=== PATIENT | male | born 1945 | race Caucasian/White ===

== ENCOUNTER 2019-04-23 17:47 | Inpatient (IN) | payer MEDICARE, OTHER ==
[~2019-04-23] VITALS: Ht 177.8 cm; Wt 108.1 kg
[~2019-04-23 17:47] MED LIST: CARB25TA3 PO; CHOL100040 PO; CLON0.1T PO; CLOP75TA28 PO; DOCU-94 PO; DULO30CA PO; ESOM40CA39 OR; FLAX1300 PO; HYDR25TA4 PO; LEVO25TA49 PO; LIOT1POW PO; MEMA5TAB2 PO; MULTTAB PO; ONDA-144 PO; TRAM50TA2 PO
[2019-04-23 18:30] LABS: Basophils # (auto) 0 uL; Basophils % (auto) 0.3 % (0.0-2.0); Eosinophils # (auto) 0 uL; Eosinophils % (auto) 0.1 % (0.0-7.0); Hemoglobin 17.3 g/dL (13.5-17.5); Lymphocytes # (auto) 1.7 uL; Lymphocytes % (auto) 10.6 % (10.0-50.0); Mean Corpuscular Hemoglobin 29.9 pg (28.0-32.0); Mean Corpuscular Hgb Conc. 32.7 g/dL (32.0-36.0); Mean Corpuscular Volume 91.5 fL (80.0-100.0); Monocytes # (auto) 0.5 uL; Monocytes % (auto) 3.4 % (0.0-12.0); Neutrophils # (auto) 13.8 uL; Neutrophils % (auto) 85.6 % (37.0-80.0); Nucleated Red Blood Cells % 0.2 %; Platelet Count (auto) 291 10^3/uL (140-450); Red Blood Cells 5.79 10^6/uL (4.5-5.90); Red Cell Distribution Width 14.2 % (11.8-14.3); White Blood Cell 16.1 10^3/uL (4.4-10.8)
[2019-04-23 18:43] LABS: Albumin 3.5 g/dL (3.4-5.0); Anion Gap 9 (5-15); Blood Urea Nitrogen 27 mg/dL (7-18); Calcium 9.3 mg/dL (8.5-10.1); Carbon Dioxide 24 mmol/L (21-32); Chloride 107 mmol/L (98-107); GFR African American 59 mL/min; GFR Non-African American 48 mL/min; Glucose 130 mg/dL (74-106); Potassium 4.6 mmol/L (3.5-5.1); Sodium 140 mmol/L (136-145)
[2019-04-23 18:48] LABS: Alanine Aminotransferase 21 U/L (16-61); Alkaline Phosphatase 78 U/L (45-117); Aspartate Aminotransferase 23 U/L (15-37); Bilirubin, Total 0.6 mg/dL (0.2-1.0); Total Protein 7.8 g/dL (6.4-8.2)
[2019-04-23] MEDS ORDERED: FUROSEMIDE 20 MG/2 ML VIAL IV ONE (19:15)
[2019-04-23 21:36] LABS: Lactic Acid w/Reflex 3.5 mmol/L (0.4-2.0)
[2019-04-23] MEDS ORDERED: VANCOMYCIN PER PHARMACY 1,000 MG IV SCH (22:00)
[2019-04-23] MEDS ORDERED: SODIUM CHLORIDE 0.9% 1,000 ML IV ONE (22:00)
[2019-04-23] MEDS ORDERED: VANCOMYCIN 1GM/250ML 250 ML IV ONE (22:45)
[2019-04-23] MEDS ORDERED: LORazepam 2MG/ML-1ML VIAL IV ONE (23:15)
[2019-04-24] VITALS (7 sets, daily range): BP systolic 96–114; BP diastolic 51–70
[2019-04-24] MEDS ORDERED: PIPERACILLIN-TAZOB 3.375GM 100 ML IV SCH
[2019-04-24] MEDS ORDERED: SODIUM CHLORIDE 0.9% 1,000 ML IV ONE (01:00)
[2019-04-24] MEDS ORDERED: ACETAMINOPHEN 325 MG TAB PO PRN (01:45)
[2019-04-24] MEDS ORDERED: ONDANSETRON HCL 4 MG/2 ML VIAL IV PRN (01:45)
--- NOTE | 2019-04-24 03:45 | NUR ---
Telemetry admit from ER TELMA GUTIERREZ admitted to Telemetry unit after SBAR received. Patient asleep at this time, arousable to pain. Sitter at bedside for safety. Patient oriented to SEBASTIEN JOHNSON, primary RN, unit, room, bed, and unit policies regarding patient care . Patient now on continuous telemetry monitoring, tele box #9 and telemetry reading on arrival to unit is SR 76. Reinsoo and rectal tube in tact. Patient placed on bedside oxygen, weighed by bedscale and encouraged to call if they need something. All questions and concerns addressed, patient verbalized understanding. Bed locked in lowest position, side rails upx2, call light within reach.
[2019-04-24] MEDS: metroNIDAZOLE 500MG/100ML 100 ML IV SCH ×3 (05:48→22:45)
[2019-04-24] MEDS ORDERED: ACE325T PO (06:20)
[2019-04-24] MEDS ORDERED: CLOP75TA41 PO (06:20)
[2019-04-24] MEDS ORDERED: CARB25TA22 PO (06:20)
[2019-04-24] MEDS ORDERED: NIFE60TA59 PO (06:20)
[2019-04-24] MEDS ORDERED: LEVO25TA6 PO (06:20)
[2019-04-24] MEDS ORDERED: MECL12.554 PO (06:20)
[2019-04-24] MEDS ORDERED: ATEN50TA PO (06:20)
[2019-04-24] MEDS ORDERED: ESOM1CAP12 PO (06:20)
[2019-04-24] MEDS: LEVOTHYROXINE SODIUM 50 MCG TAB PO SCH (06:35)
--- NOTE | 2019-04-24 07:35 | NUR ---
Opening Shift Note Assumed care of patient, patient is confused upon awakening. Reorientated patient. Patient is on 5 L NC with no S/S of distress/SOB or pain. Sitter at bedside for safety. Bed is in lowest position, wheels are locked, side rails up x2, and call light is within reach. Instructed on POC and to call for assistance PRN, will continue to monitor for changes Q1hr and PRN.
[2019-04-24] MEDS: cefTRIAXone 1GM/50ML D5W 50 ML IV SCH (09:47)
[2019-04-24] MEDS: FAMOTIDINE 20 MG TAB PO SCH ×2 (09:48→22:00)
[2019-04-24 11:54] LABS: Basophils # (auto) 0.1 uL; Basophils % (auto) 0.7 % (0.0-2.0); Eosinophils # (auto) 0.4 uL; Eosinophils % (auto) 3.4 % (0.0-7.0); Hematocrit 47.2 % (41.0-53.0); Hemoglobin 15.7 g/dL (13.5-17.5); Lymphocytes # (auto) 2.1 uL; Lymphocytes % (auto) 18.7 % (10.0-50.0); Mean Corpuscular Hemoglobin 30.2 pg (28.0-32.0); Mean Corpuscular Hgb Conc. 33.2 g/dL (32.0-36.0); Mean Corpuscular Volume 90.9 fL (80.0-100.0); Monocytes # (auto) 0.6 uL; Monocytes % (auto) 5.7 % (0.0-12.0); Neutrophils % (auto) 71.5 % (37.0-80.0); Platelet Count (auto) 216 10^3/uL (140-450); Red Blood Cells 5.19 10^6/uL (4.5-5.90); White Blood Cell 11.1 10^3/uL (4.4-10.8)
[2019-04-24 12:15] LABS: BUN/Creatinine Ratio 27.8; Calcium 8.6 mg/dL (8.5-10.1); Potassium 3.8 mmol/L (3.5-5.1)
--- NOTE | 2019-04-24 15:00 | NUR ---
URINE SAMPLE COLLECTED FROM REYNA CATHETER WITH CLEAN TECHNIQUE. SPECIMEN SENT TO LAB VIA BULLET
[2019-04-24 15:45] LABS: Urine Bacteria NONE SEEN /hpf (None Seen); Urine Blood TRACE /uL (Negative); Urine Mucus FEW (None Seen); Urine Specific Gravity 1.026 (1.001-1.035); Urine WBC 5 /hpf (0 - 3)
--- NOTE | 2019-04-24 18:40 | NUR ---
Dr Pool at bedside Dr. Pool at bedside. New orders received. orders carried out in [facility].
--- NOTE | 2019-04-24 19:26 | NUR ---
Opening Shift Note Assumed care of patient, awake and alert. No S/S of distress/SOB or pain. Instructed on POC and to call for assist PRN, will continue to monitor for changes Q1hr and PRN. Side rails up x2. Bed locked in lowest position. Call light within reach. Sitter at bedside for safety.
--- NOTE | 2019-04-24 20:18 | NUR ---
Rectal tube removed per doctors order.
--- NOTE | 2019-04-24 22:02 | NUR ---
Patient pulled out IV catheter from Right hand Catheter fully intact. Pressure dressing applied to site. Will insert new IV.
--- NOTE | 2019-04-24 22:09 | NUR ---
IV insertion IV access obtained, via clean sterile technique by inserting 20 gauge catheter on right upper chest after 2 attempts. IV secured properly. No trauma to site. Patient tolerated wel.
[2019-04-24] MEDS: LORazepam 2MG/ML-1ML VIAL IV PRN (23:06)
[2019-04-25] VITALS (7 sets, daily range): BP systolic 122–151; BP diastolic 74–89
[2019-04-25] MEDS: metroNIDAZOLE 500MG/100ML 100 ML IV SCH ×3 (06:31→21:55)
[2019-04-25] MEDS: LEVOTHYROXINE SODIUM 50 MCG TAB PO SCH (06:31)
--- NOTE | 2019-04-25 07:16 | NUR ---
Endorsed care to day shift RN. Patient in bed asleep with no signs of distress/sob/pain. Sitter at bedside for safety.
--- NOTE | 2019-04-25 07:30 | NUR ---
Opening Shift Note RECEIVED REPORT FROM NOC RN. Assumed care of patient, awake and alert. PATIENT ON OXYGEN AT 5 LPM VIA NASAL CANNULE WITH no S/S of distress/SOB or pain. BED IN LOWEST, LOCKED POSITION WITH SIDERAILS UP x2 AND SITTER AT BEDSIDE. Instructed on POC and to call for assist PRN, will continue to monitor for changes Q1hr and PRN.
[2019-04-25] MEDS: cefTRIAXone 1GM/50ML D5W 50 ML IV SCH (09:24)
[2019-04-25] MEDS: FAMOTIDINE 20 MG TAB PO SCH ×2 (10:21→21:55)
--- NOTE | 2019-04-25 19:00 | NUR ---
Opening Shift Note Assumed care of patient, awake, confused. Sitter on bedside. No S/S of distress/SOB or pain. Instructed on POC and to call for assist PRN, will continue to monitor for changes Q1hr and PRN.
[2019-04-26 05:00] VITALS: BP 134/72
[2019-04-26] MEDS: metroNIDAZOLE 500MG/100ML 100 ML IV SCH ×3 (06:21→22:35)
[2019-04-26] MEDS: LEVOTHYROXINE SODIUM 50 MCG TAB PO SCH (06:47)
--- NOTE | 2019-04-26 07:30 | NUR ---
Opening Shift Note RECEIVED REPORT FROM NOC RN. Assumed care of patient, awake and CONFUSED. PATIENT ON OXYGEN AT 5 LPM VIA NASAL CANNULA WITH no S/S of distress/SOB or pain. BED IN LOWEST, LOCKED POSITION WITH SIDERAILS UP x2 AND SITTER AT BEDSIDE. Instructed on POC and to call for assist PRN, will continue to monitor for changes Q1hr and PRN.
[2019-04-26 09:00] VITALS: BP 152/86
[2019-04-26] MEDS: cefTRIAXone 1GM/50ML D5W 50 ML IV SCH (09:15)
[2019-04-26] MEDS: FAMOTIDINE 20 MG TAB PO SCH ×2 (10:48→22:35)
[2019-04-26 13:00] VITALS: BP 146/91
[2019-04-26 13:40] LABS: Basophils # (auto) 0.1 uL; Basophils % (auto) 0.7 % (0.0-2.0); Eosinophils # (auto) 0.2 uL; Eosinophils % (auto) 2.4 % (0.0-7.0); Hematocrit 46.2 % (41.0-53.0); Hemoglobin 15.3 g/dL (13.5-17.5); Lymphocytes # (auto) 1.9 uL; Lymphocytes % (auto) 26.1 % (10.0-50.0); Mean Corpuscular Volume 90.8 fL (80.0-100.0); Monocytes # (auto) 0.5 uL; Monocytes % (auto) 6.3 % (0.0-12.0); Neutrophils # (auto) 4.8 uL; Neutrophils % (auto) 64.5 % (37.0-80.0); Platelet Count (auto) 189 10^3/uL (140-450); Red Blood Cells 5.09 10^6/uL (4.5-5.90); Red Cell Distribution Width 13.8 % (11.8-14.3); White Blood Cell 7.4 10^3/uL (4.4-10.8)
--- NOTE | 2019-04-26 13:44 | NUR ---
Estimated needs based on AJBW 83.6 kg for geriatric needs 1434-9208 kcal (25-30 kcal/kg) 83-100 g protein (1.0-1.2 g/kg) Addendum: 04/26/19 at [address] Amended: Links added.
[2019-04-26 14:01] LABS: Albumin 2.9 g/dL (3.4-5.0); Calcium 8.5 mg/dL (8.5-10.1); Potassium 3.4 mmol/L (3.5-5.1)
[2019-04-26 14:03] LABS: BUN/Creatinine Ratio 14.4; Bilirubin, Total 0.3 mg/dL (0.2-1.0); Total Protein 6.7 g/dL (6.4-8.2)
[2019-04-26 18:18] VITALS: BP 132/82
--- NOTE | 2019-04-26 19:00 | NUR ---
Opening Shift Note Assumed care of patient, awakeco. No S/S of distress/SOB or pain. Insructed on POC and to callfor assist PRN, will continue to monitor for changes Q1hr and PRN. Addendum: 04/27/19 at 0602 by Thaddeus Dhillon RN Wrong spelling Opening Shift Note Assumed care of patient, awake,confused. Sitter on bedside No S/S of distress/SOB or pain. Instructed sitter on POC and to call for assist PRN, will continue to monitor for changes Q1hr and PRN.
[2019-04-26 22:00] VITALS: BP 132/83
[2019-04-26] MEDS: LORazepam 2MG/ML-1ML VIAL IV PRN (22:48)
[2019-04-27 05:00] VITALS: BP 158/89
[2019-04-27] MEDS: metroNIDAZOLE 500MG/100ML 100 ML IV SCH ×3 (06:00→22:56)
[2019-04-27] MEDS: LEVOTHYROXINE SODIUM 50 MCG TAB PO SCH (07:00)
--- NOTE | 2019-04-27 07:18 | NUR ---
Opening Shift Note Assumed care of patient, laying in bed with eyes closed resting quietly in bed. Patient is on 5 L NC with no S/S of distress/SOB or pain. Sitter at bedside for safety and mittens in place as patient as he keeps attempting to pull on catheter and removing NC. Bed is in lowest position, wheels are locked, side rails up X3, and call light is with reach. Instructed on POC and to call for assist PRN, will continue to monitor for changes Q1hr and PRN.
[2019-04-27 09:00] VITALS: BP 141/96
[2019-04-27] MEDS: FAMOTIDINE 20 MG TAB PO SCH ×2 (10:00→22:56)
[2019-04-27] MEDS: cefTRIAXone 1GM/50ML D5W 50 ML IV SCH (10:12)
--- NOTE | 2019-04-27 12:02 | NUR ---
Rounds Patient awake laying down in bed. Offered patient water and lunch. Patient refusing by just shaking head no. patient educated on need for water and food. Patient just keeps shaking head no. Will continue to frequently offer hydration and food. No S/S of distress/SOB or pain. Will continue to monitor changes q1hr and PRN.
[2019-04-27 13:00] VITALS: BP 158/95
[2019-04-27 17:00] VITALS: BP 147/85
--- NOTE | 2019-04-27 19:00 | NUR ---
Opening Shift Note Assumed care of patient, awake,confused. Sitter on bedside. No S/S of distress/SOB or pain. Instructed sitter on POC and to call for assist PRN, will continue to monitor for changes Q1hr and PRN.
--- NOTE | 2019-04-27 19:16 | NUR ---
Closing Note Patient awake but remains only A&Ox2 laying in bed comfortably. No S/S of distress/SOB or pain at this time. Bed is in lowest position, wheels are locked, side rails up x2, and call light is within reach. Sitter at bedside for safety. Care endorsed to Starr HOLLAND RN.
[2019-04-27 22:00] VITALS: BP 130/78
[2019-04-28] MEDS: metroNIDAZOLE 500MG/100ML 100 ML IV SCH ×3 (06:00→21:50)
[2019-04-28] MEDS: LEVOTHYROXINE SODIUM 50 MCG TAB PO SCH (07:00)
[2019-04-28 09:00] VITALS: BP 134/79
[2019-04-28] MEDS: cefTRIAXone 1GM/50ML D5W 50 ML IV SCH (09:00)
[2019-04-28] MEDS: FAMOTIDINE 20 MG TAB PO SCH ×2 (10:00→21:50)
[2019-04-28 13:00] VITALS: BP 123/71
[2019-04-28 17:00] VITALS: BP 149/75
[2019-04-28 22:21] VITALS: BP 139/73
[2019-04-29 05:00] VITALS: BP 119/71
[2019-04-29] MEDS: metroNIDAZOLE 500MG/100ML 100 ML IV SCH ×4 (05:44→22:05)
[2019-04-29] MEDS: LEVOTHYROXINE SODIUM 50 MCG TAB PO SCH (05:44)
[2019-04-29 09:00] VITALS: BP 141/79
[2019-04-29] MEDS: cefTRIAXone 1GM/50ML D5W 50 ML IV SCH (09:00)
[2019-04-29] MEDS: FAMOTIDINE 20 MG TAB PO SCH ×2 (09:55→22:04)
[2019-04-29 13:00] VITALS: BP 134/97
[2019-04-29 17:00] VITALS: BP 147/71
--- NOTE | 2019-04-29 20:00 | NUR ---
PAGED DR QUAN REGARDING ORDERS FOR ADVANCING DIET. AWAITING CALL BACK FOR ORDERS.
[2019-04-29 22:00] VITALS: BP 128/81
[2019-04-30 05:00] VITALS: BP 130/76
[2019-04-30] MEDS: LEVOTHYROXINE SODIUM 50 MCG TAB PO SCH (05:24)
[2019-04-30] MEDS: metroNIDAZOLE 500MG/100ML 100 ML IV SCH ×3 (05:24→21:05)
--- NOTE | 2019-04-30 07:35 | NUR ---
Opening Shift Note Assumed care of patient, awake and alert only to self. No S/S of distress/SOB, no pain noted or reported at this time. Updated on POC and instructed to call for assistance as needed, pt. verbalized understanding. Bed locked in lowest position, side rails up x 2, call light within reach. Sitter at bedside for safety. Will continue to monitor for changes Q1hr and PRN.
[2019-04-30] MEDS: cefTRIAXone 1GM/50ML D5W 50 ML IV SCH (08:59)
[2019-04-30] MEDS: FAMOTIDINE 20 MG TAB PO SCH ×2 (08:59→21:05)
[2019-04-30 09:00] VITALS: BP 138/71
--- NOTE | 2019-04-30 11:00 | NUR ---
Nutrition Follow-up Notes Wt.: 108.0 kg Pt was awake not very oriented with no family by bedside. per records pt with possible colitis. pt is currently on clear liq diet with inadequate PO of 50% x 6 per RN doc. Est. Needs ABW (91 kg): 6732-0949 kcal (20-23 kcal/kgBW), 91-100 gms pro (1.0-1.1 gms/kgBW). Will continue to monitor pertinent labs and reassess nutrient need prn Labs: no new labs today 04/26: glu 116 h, alb 2.9 l. 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 PES: Inadequate PO intake r/t current GI condition aeb pt. family reports of N/V/D prior to admission and documented PO intake meeting <75% estimated needs Will continue to monitor PO intake, skin status, pertinent labs and weight trend. F/u in 2-3 days. Rec.: 1.) Add Ensure Clear TID with meals for poor PO intake. 2) Continue clear liquid diet for now until GI distress is resolved. When medically able, advance diet to Cardiac/2gm Na diet.
[2019-04-30 13:00] VITALS: BP 145/83
--- NOTE | 2019-04-30 15:14 | NUR ---
SPOKE WITH PATIENTS REGARDING DISCHARGE. PATIENT HAS NO CURRENT ORDERS FOR DISCHARGE. WILL NOTIFY ONCE ANY ORDERS ARE RECEIVED.
[2019-04-30 17:00] VITALS: BP 145/87
--- NOTE | 2019-04-30 19:46 | NUR ---
FAMILY CONCERNED IF PATIENT WAS GOING TO BE DISCHARGED TO [facility]. INFORMED THEM THERE WAS NO ORDERS FOR DISCHARGED BUT WILL CONTACT DR QUAN TO CONFIRM ANY PLANS FOR DISCHARGE. PAGED DR QUAN AWAITING CALL BACK FOR ORDERS.
[2019-04-30 22:00] VITALS: BP 143/82
[2019-05-01] MEDS: LEVOTHYROXINE SODIUM 50 MCG TAB PO SCH (05:18)
[2019-05-01] MEDS: metroNIDAZOLE 500MG/100ML 100 ML IV SCH ×2 (05:18→15:26)
[2019-05-01 05:30] VITALS: BP 148/80
--- NOTE | 2019-05-01 07:30 | NUR ---
Open Shift Note Received report on patient, asleep in bed and snoring. Patient awoke with touch of foot but refuses to keep eyes open and cooperate at this time. Patient opened eyes briefly to see who was at bedside but then closed them once asked questions. Will allow patient to continue to sleep and reassess once patient able to participate. Bed in lowest locked position, side rails up x2 and call light within reach. Sitter present at bedside. Will continue to monitor.
[2019-05-01 08:33] VITALS: BP 144/80
[2019-05-01] MEDS: cefTRIAXone 1GM/50ML D5W 50 ML IV SCH (10:00)
[2019-05-01] MEDS: FAMOTIDINE 20 MG TAB PO SCH (10:01)
--- NOTE | 2019-05-01 10:08 | NUR ---
Paged Dr Pool Paged Dr Pool to inform him that patient had small bowel movement, and placed a discharge summary with plans to DC but no orders for discharge. Awaiting call back.
[2019-05-01 13:00] VITALS: BP 147/79
[2019-05-01 16:10] VITALS: BP 147/79
[2019-05-01 17:00] VITALS: BP 148/79
--- NOTE | 2019-05-01 17:28 | NUR ---
assessment Patient is a 73 year old male who is confused. per patients Brenna prior to admission patient resided at [facility] [phone]. Per Brenna patient will need transportation home. I provided Brenna with the phone number to [facility] care transport [phone]. Brnena agreed to pay for transport. Patient will return to [facility] on discharge. Patients PCP is Dr Pool. Patient has an advanced directive and Brenna is POA. Patient has a fww and a wheelchair for home use at the facility. Patient may benefit from home health on discharge. Brenna verbalized understanding and agreed to discharge plan back to [facility]. Addendum: 05/01/19 at 1732 by Carla LOBATO Amended: Links added.
--- NOTE | 2019-05-01 18:58 | NUR ---
End of Shift-Awaiting Transport Patient given discharge paperwork, unable to sign at this time. Awaiting transport to [facility] patient. Patient's stated transport will be here between 7 and 7:30pm. Verbalized understanding. NOC made aware, care endorsed. IV removed, catheter intact and dressing applied. Tele box removed and sent back to ICU. NOC nurse aware to remove valdez before discharging.
--- NOTE | 2019-05-01 21:00 | NUR ---
TRANSPORT CALLED [facility] [phone] FOR ETA, STAFF STATES ETA 15MINUTES. PATIENT IN NO APPARENT CARDIAC OR PULMONARY DISTRESS OR ANY COMPLAINTS OF PAIN OR DISCOMFORT. PATIENT HAS REYNA INTACT, ORDERS FOR DISCONTINUE REYNA. DEFLATED BALLOON REMOVED REYNA. PATIENT TOLERATED WELL. PLACED PATIENT DIAPER FROM HOME AND PANTS. PATIENT TOLERATED WELL. AWAITING TRANSPORT ARRIVAL.
--- NOTE | 2019-05-01 21:50 | NUR ---
DISCHARGE PATIENT HAS ORDERS FOR DISCHARGE TO [facility]. [facility] AT BEDSIDE TO PICKUP PATIENT. PATIENT IN NO APPARENT CARDIAC OR PULMONARY DISTRESS AND HAS NO COMPLAINTS OF PAIN OR ANY DISCOMFORT. ALL BELONGINGS WITH PATIENT ALONG WITH DISCHARGE PAPERWORK. COPY OF PATIENT FACE SHEET AND ADVANCED DIRECTIVE GIVEN TO TRANSPORT STAFF FOR THEIR INFORMATION. PATIENT TRANSFERRED TO [facility] AND CONTACT NUMBER OF [facility]. PATIENT LEFT FACILITY @ 4024 WITH [facility] VIA [facility].
== END 2019-05-01 21:49 | disposition home or self-care (01) | DRG 871 ==
LOC: ER 17:47 → EDBD 17:47 → TELE 17:48 → TELE-WESTW 04-24 04:00
PROVIDERS: ADMIT Nurse Practitioner Family; ATTEND Internal Medicine Cardiovascular Disease
DX: A41.9 Sepsis, unspecified organism (principal); G93.41 Metabolic encephalopathy; N39.0 Urinary tract infection, site not specified; A09 Infectious gastroenteritis and colitis, unspecified; J91.8 Pleural effusion in other conditions classified elsewhere; J98.11 Atelectasis; N28.9 Disorder of kidney and ureter, unspecified; I50.9 Heart failure, unspecified; Z66 Do not resuscitate; I11.0 Hypertensive heart disease with heart failure; F02.80 Dementia in other diseases classified elsewhere, unspecified severity, without behavioral disturbance, psychotic disturbance, mood disturbance, and anxiety; G30.9 Alzheimer's disease, unspecified; I70.0 Atherosclerosis of aorta; F09 Unspecified mental disorder due to known physiological condition; E87.6 Hypokalemia; E66.9 Obesity, unspecified; I25.10 Atherosclerotic heart disease of native coronary artery without angina pectoris; E89.0 Postprocedural hypothyroidism; E86.9 Volume depletion, unspecified; Z79.02 Long term (current) use of antithrombotics/antiplatelets; Z90.79 Acquired absence of other genital organ(s); Z79.899 Other long term (current) drug therapy; Z83.3 Family history of diabetes mellitus; Z80.8 Family history of malignant neoplasm of other organs or systems; Z68.34 Body mass index [BMI] 34.0-34.9, adult
CPT/HCPCS: 36415; 36600; 70450; 71045; 74176; 80048; 80053; 81001; 82550; 82805; 82962; 83605; 83880; 84443; 84484; 85025; 85610; 85730; 87040; 87081; 87493; 93005; 96361; 96365; 96375; G0378; J0696; J3490